=== PATIENT | female | born 1995 | race Two or more races ===

== ENCOUNTER 2016-10-07 17:08 | Emergency (ER) | payer SELFPAY ==
[~2016-10-07] VITALS: Ht 157.5 cm; Wt 72.6 kg
[2016-10-07 17:23] VITALS: BP 136/72
[2016-10-07 18:24] LABS: Basophils # (auto) 0 uL; Basophils % (auto) 0.4 % (0.0-2.0); Eosinophils # (auto) 0 uL; Eosinophils % (auto) 0.2 % (0.0-7.0); Hemoglobin 12.2 g/dL (12.2-16.2); Lymphocytes # (auto) 2.2 uL; Lymphocytes % (auto) 27.9 % (10.0-50.0); Mean Corpuscular Hemoglobin 30.2 pg (28.0-32.0); Mean Corpuscular Hgb Conc. 33.9 g/dL (32.0-36.0); Mean Corpuscular Volume 88.9 fL (80.0-100.0); Mean Platelet Volume 8.9 fL (7.4-10.4); Monocytes # (auto) 0.7 uL; Monocytes % (auto) 8.5 % (0.0-12.0); Neutrophils # (auto) 4.9 uL; Platelet Count (auto) 219 10^3/uL (140-450); Red Cell Distribution Width 12.9 % (11.6-16.0); White Blood Cell 7.7 10^3/uL (4.4-10.8)
[2016-10-07 18:38] LABS: Albumin 3.4 g/dL (3.4-5.0); BUN/Creatinine Ratio 21.6; Bilirubin, Total 0.3 mg/dL (0.2-1.0); Calcium 8.3 mg/dL (8.5-10.1); Potassium 3.4 mmol/L (3.5-5.1); Total Protein 7.3 g/dL (6.4-8.2)
== END 2016-10-07 21:34 | disposition home or self-care (01) ==
LOC: ER 17:08
DX: O03.9 Complete or unspecified spontaneous abortion without complication (principal)
CPT/HCPCS: 36415; 80053; 84702; 85025

== ENCOUNTER 2018-08-01 07:10 | Observation (INO) | payer MEDICAID | END 2018-08-01 08:00 | disposition home or self-care (01) | DRG 566 | LOC: LDRP 07:10 | PROVIDERS: ADMIT Specialist; ATTEND Specialist | DX: O26.892 Other specified pregnancy related conditions, second trimester (principal); R10.2 Pelvic and perineal pain; Z3A.22 22 weeks gestation of pregnancy | CPT/HCPCS: 59025; 81002; G0378 ==

== ENCOUNTER 2018-10-13 11:45 | Observation (INO) | payer MEDICAID ==
[~2018-10-13] VITALS: Ht 162.6 cm; Wt 99.8 kg
[2018-10-13] MEDS ORDERED: LACTATED RINGER'S 1,000 ML IV SCH (12:22)
[2018-10-13] MEDS ORDERED: MAGNESIUM SULFATE 40MG/ML 1,000 ML IV SCH (12:22)
[2018-10-13] MEDS ORDERED: MAGNESIUM SULFATE 100 ML IV ONE (12:30)
[2018-10-13] MEDS ORDERED: PREN-96 PO (12:34)
[2018-10-13] MEDS ORDERED: hydrALAZINE HCL 20 MG/ML VL IV ONE (13:25)
[2018-10-13] MEDS ORDERED: BETAMETHASONE ACET (6MG/ML) 5ML VIAL IM ONE (14:00)
[2018-10-13 14:03] LABS: Albumin 2.4 g/dL (3.4-5.0); Calcium 8.2 mg/dL (8.5-10.1); Potassium 4.1 mmol/L (3.5-5.1)
[2018-10-13 14:03] LABS: Urine Bacteria NONE SEEN /hpf (None Seen); Urine Blood 2+ /uL (Negative); Urine Hyaline Cast FEW /lpf (0 - 2); Urine Mucus FEW (None Seen); Urine Specific Gravity 1.048 (1.001-1.035); Urine WBC 6 /hpf (0 - 5)
[2018-10-13 14:04] LABS: INR 0.83 (0.9-1.15); Partial Thromboplastin Time 26.2 sec (23.64-32.05)
[2018-10-13 14:06] LABS: BUN/Creatinine Ratio 25.4; Bilirubin, Total 0.3 mg/dL (0.2-1.0); Total Protein 6.3 g/dL (6.4-8.2); Uric Acid 6.6 mg/dL (2.6-6.0)
[2018-10-13 14:18] LABS: Basophils # (auto) 0 uL; Basophils % (auto) 0.4 % (0.0-2.0); Eosinophils # (auto) 0 uL; Eosinophils % (auto) 0.2 % (0.0-7.0); Hematocrit 31.7 % (36.0-46.0); Hemoglobin 10.6 g/dL (12.2-16.2); Lymphocytes # (auto) 1.8 uL; Lymphocytes % (auto) 24.4 % (10.0-50.0); Mean Corpuscular Hemoglobin 27.3 pg (28.0-32.0); Mean Corpuscular Hgb Conc. 33.3 g/dL (32.0-36.0); Mean Corpuscular Volume 82.2 fL (80.0-100.0); Monocytes # (auto) 0.7 uL; Monocytes % (auto) 9.3 % (0.0-12.0); Neutrophils # (auto) 4.7 uL; Neutrophils % (auto) 65.7 % (37.0-80.0); Nucleated Red Blood Cells % 0.2 %; Platelet Count (auto) 149 10^3/uL (140-450); Red Blood Cells 3.86 10^6/uL (4.0-5.20); Red Cell Distribution Width 14.1 % (11.8-14.3); White Blood Cell 7.2 10^3/uL (4.4-10.8)
== END 2018-10-13 16:25 | disposition short-term general hospital (02) | DRG 566 ==
LOC: LDRP 11:45
PROVIDERS: ADMIT Specialist; ATTEND Specialist
DX: O14.93 Unspecified pre-eclampsia, third trimester (principal); O13.3 Gestational [pregnancy-induced] hypertension without significant proteinuria, third trimester; Z3A.32 32 weeks gestation of pregnancy
CPT/HCPCS: 36415; 51702; 59025; 76805; 80053; 81001; 81002; 83735; 84550; 85025; 85610; 85730; 94760; 96365; 96366; 96372; 96375; G0378; J0360; J0702; J3475; 96374